=== PATIENT | female | born 1980 | race Caucasian/White ===

== ENCOUNTER 2021-09-24 06:19 | Day surgery (SDC) | payer MEDICAID ==
[~2021-09-24] VITALS: Ht 160 cm; Wt 137.4 kg
[2021-09-24 06:58] LABS: HCG,QUAL RESULT NEGATIVE (NEGATIVE)
[2021-09-24] MEDS ORDERED: MEPERIDINE 100 MG INJ. 100 MG/ML VIAL ONE (07:38)
[2021-09-24] MEDS ORDERED: SIMETHICONE 40 MG/0.6 ML ML ONE (07:38)
[2021-09-24] MEDS ORDERED: fentaNYL CITRATE/PF 100 MCG/2 ML AMP ONE (07:38)
[2021-09-24] MEDS ORDERED: MIDAZOLAM HCL 5 MG/5 ML VIAL ONE (07:39)
[2021-09-24] MEDS ORDERED: DIPHENHYDRAMINE INJ 50 MG/ML VIAL ONE (08:20)
[2021-09-24 11:04] VITALS: BP_SYST 121
== END 2021-09-24 09:45 | disposition home or self-care (01) ==
LOC: SDS 06:19 → SMU 06:20 → SDS 09:45
PROVIDERS: ATTEND Internal Medicine
DX: R19.4 Change in bowel habit (principal); K52.9 Noninfective gastroenteritis and colitis, unspecified; D64.9 Anemia, unspecified; K64.8 Other hemorrhoids; Z79.899 Other long term (current) drug therapy; Z20.822 Contact with and (suspected) exposure to COVID-19
CPT/HCPCS: 36415; 45380; 84703; 87635-QW; 88305; J1200; J2175; J2250; J3010; U0003